=== PATIENT | male | born 1950 | race Caucasian/White ===

== ENCOUNTER 2019-02-11 20:30 | Outpatient (CLI) | payer MEDICARE | END 2019-02-11 20:31 | disposition home or self-care (01) | LOC: SLEEPLAB 20:30 | PROVIDERS: ATTEND Family Medicine | DX: G47.33 Obstructive sleep apnea (adult) (pediatric) (principal); E11.9 Type 2 diabetes mellitus without complications; I10 Essential (primary) hypertension; R06.83 Snoring | CPT/HCPCS: 95811 ==

== ENCOUNTER 2019-04-23 17:14 | Outpatient (CLI) | payer MEDICARE ==
[2019-04-23 17:42] LABS: #Basophils 0.1 thou/uL (0.0-0.2); #Eosinphils 0.2 thou/uL (0.0-0.7); #Lymphocytes 1.6 thou/uL (1.20-3.40); #Monocytes 0.5 thou/uL (0.11-0.59); #Neutrophils 4.1 thou/uL (1.40-6.50); %Basophils 1.2 % (0.0-1.0); %Eosinophils 3.2 % (0.0-10.0); %Lymphocytes 24.5 % (21.0-51.0); %Neutrophils 64.1 % (42.0-75.0); Hemoglobin 12.9 g/dL (14.0-18.0); Mean Corpuscular HGB CONC 32.7 g/dL (32.0-36.0); Mean Corpuscular Hemoglobin 30.5 pg (27.0-31.0); Mean Corpuscular Volume 93.3 fL (78.0-98.0); Mean Platelet Volume 6.2 fL (7.4-10.4); Platelet Count 207 thou/uL (130-400); RBC Distribution Width 13.5 % (11.5-14.5); Red Blood Cell (RBC) Count 4.21 mill/uL (4.70-6.10); White Blood Cell (WBC) Count 6.3 thou/uL (4.8-10.8)
--- NOTE | 2019-04-23 17:45 | RAD ---
EXAM: 2 views of the right hip HISTORY: Right hip pain after fall COMPARISON: None FINDINGS: 2 views of the right hip shows no evidence of acute fracture or dislocation. Moderate right hip degenerative changes are seen. No soft tissue swelling is present. IMPRESSION: No evidence of acute osseous abnormality.
--- NOTE | 2019-04-23 17:46 | RAD ---
EXAM: Right Rib series with chest x-ray HISTORY: Rib pain after fall COMPARISON: None FINDINGS: Single view of the chest shows a normal sized cardiomediastinal silhouette. Atheroscleroti c calcification are seen in the aorta. There is no evidence of consolidation, mass, or pleural effusion. A spinal stimulation device is seen with its tip in the mid thoracic spine. Multiple views of the right ribs shows no evidence of displaced rib fracture. No underlying pleural t hickening or pneumothorax are seen. IMPRESSION: 1. No evidence of displaced rib fracture. 2. No evidence of acute cardiopulmonary disease.
[2019-04-23 17:56] LABS: ALT (SGPT) 19 U/L (8-55); AST (SGOT) 20 U/L (5-34); Albumin 4.1 g/dL (3.4-4.8); Alkaline Phosphatase 69 U/L (40-150); Anion Gap 12 mmol/L (10-20); BUN (Urea Nitrogen) 17 mg/dL (8.4-25.7); Bilirubin, Total 0.3 mg/dL (0.2-1.2); Calc. Creatinine Clearance 0 mL/min (70-130); Calcium 9.7 mg/dL (7.8-10.44); Carbon Dioxide 25 mmol/L (23-31); Cardiac Risk 3.7 (Less than 4.5); Chloride 106 mmol/L (98-107); Cholesterol 129 mg/dl (< 200 Desired); Estimated GFR-MDRD 59; Globulin 3.1 g/dL (2.4-3.5); Glucose 123 mg/dL (80-115); HDL Cholesterol 35 mg/dL (>60 Neg Risk); LDL Cholesterol, Calculated 67 mg/dL; Potassium 4.3 mmol/L (3.5-5.1); Protein, Total 7.2 g/dL (5.8-8.1); Sodium 139 mmol/L (136-145); Triglycerides 137 mg/dL (Less than 150); Uric Acid 6.5 mg/dL (3.5-7.2)
[2019-04-23 18:20] LABS: Free T4 (Free Thyroxine) 0.87 ng/dL (0.70-1.48); Thyroid Stimulating Hormone 1.643 uIU/mL (0.35-4.94)
[2019-04-23 20:32] LABS: Hemoglobin A1c 6.7 % (4.0-6.0)
[2019-04-23 20:40] LABS: Creatinine, Urine 272.87 mg/dL (63-166); Microalbumin Urine 35.1 mg/dL (0.5-50.0); Microalbumin/Creat Ratio 128.6 mg/g (Less than 30)
== END 2019-04-23 17:15 | disposition home or self-care (01) ==
LOC: SCSRAD 17:14
PROVIDERS: ATTEND Family Medicine
DX: M25.551 Pain in right hip (principal); R07.81 Pleurodynia; E11.9 Type 2 diabetes mellitus without complications; M10.9 Gout, unspecified
CPT/HCPCS: 80053; 80061; 82043; 83036; 84439; 84443; 84550; 85025

== ENCOUNTER 2020-01-16 09:33 | Outpatient (CLI) | payer MEDICARE ==
--- NOTE | 2020-01-16 14:36 | RAD ---
Arthrogram right shoulder: DATE: 01/16/2020 HISTORY: 69-year-old male with right shoulder pain TECHNIQUE: Signed informed consent obtained. Patient placed supine on fluoroscopy table. Right anterior shoulder prepped and draped in usual sterile fashion after obtaining aids nurse radiographic images. 25-gauge needle used to apply buffered lidocaine. 22-gauge spinal needle advanced until tip contacted humeral head medially. 10 mL of normal saline solution containing dilute iodinated contrast, lidocaine, and epinephrine injected. Needle removed. Patient tolerated procedure well. No complications. Postinjecti on fluoroscopic image demonstrates contrast material in soft tissues, but not within the intracapsular space. Subsequent CT also confirmed this. 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 At least m ild DJD of glenohumeral joint. IMPRESSION: Unsuccessful right shoulder arthrogram. Recommend repeat arthrogram attempt. Patient should not be charged extra for the repeat study.
== END 2020-01-16 09:34 | disposition home or self-care (01) ==
LOC: RAD 09:33
PROVIDERS: ATTEND Orthopaedic Surgery
DX: S42.124A Nondisplaced fracture of acromial process, right shoulder, initial encounter for closed fracture (principal); M67.911 Unspecified disorder of synovium and tendon, right shoulder
CPT/HCPCS: 23350

== ENCOUNTER 2020-01-29 11:01 | Day surgery (SDC) | payer MEDICARE ==
[2020-01-28 14:06] VITALS: BMI 39.9
[~2020-01-29 11:01] MED LIST: Glycopyrrolate 0.2 MG/ML 5 ML SYRINGE ONE; Lidocaine 1% PF 5 ML VIAL ONE; Metoclopramide HCl 10 MG/2 ML VIAL ONE; Ondansetron PF 4 MG/2 ML Vial ONE; PROPOFOL 200 MG/20 ML VIAL ONE; Rocuronium Bromide 10 MG/ML (10ML VIAL) ONE; Ropivacaine 0.2% HCl/PF (40 MG/20 ML VIAL) ONE; Ropivacaine 0.5% HCl/PF (150 MG/30 ML VIAL) ONE; Succinylcholine Chloride 20 MG/ML 10 ml SYRINGE FS ONE
[2020-01-29] MEDS ORDERED: Fentanyl 100 MCG/2 ML VIAL ONE ×2 (12:14→12:33)
[2020-01-29] MEDS ORDERED: Midazolam HCl 2 mg/2 ml Vial ONE (12:33)
[2020-01-29] MEDS ORDERED: Ondansetron PF 4 MG/2 ML Vial IVP PRN (12:46)
[2020-01-29] MEDS ORDERED: Ropivacaine 0.2% 550 ML 550 ML NERVE BLCK SCH (12:46)
[2020-01-29] MEDS ORDERED: traMADol HCl 50 MG TAB PO PRN ×2 (12:46)
[2020-01-29] MEDS ORDERED: Promethazine HCl 25 MG/ML VIAL IM PRN ×2 (12:46→14:38)
[2020-01-29] MEDS ORDERED: HYDROcodone/Acetaminophen 10/325 mg Tablet PO PRN ×2 (12:46)
[2020-01-29] MEDS ORDERED: Zolpidem Tartrate 5 MG TAB PO PRN (12:46)
[2020-01-29] MEDS ORDERED: Acetaminophen 325 MG TAB PO PRN (12:46)
[2020-01-29] MEDS ORDERED: Fentanyl 100 MCG/2 ML VIAL IV PRN (12:47)
[2020-01-29] MEDS ORDERED: HYDROmorphone 2 MG/ML VIAL SLOW IVP PRN (14:38)
[2020-01-29] MEDS ORDERED: Promethazine HCl 25 MG/ML VIAL SLOW IVP PRN (14:38)
[2020-01-29] MEDS ORDERED: Meperidine HCl/PF 25 MG/ML VIAL SLOW IVP PRN (14:38)
--- NOTE | 2020-01-29 15:24 | OP ---
DATE OF PROCEDURE: 01/29/2020 PROCEDURE PERFORMED: Right shoulder open rotator cuff repair with arthroscopic subacromial decompression. PREOPERATIVE DIAGNOSIS: Right shoulder massive rotator cuff tear with retraction with subacromial impingement. POSTOPERATIVE DIAGNOSIS: Right shoulder massive rotator cuff tear with retraction with subacromial impingement. COMPLICATIONS: None. ESTIMATED BLOOD LOSS: 100 mL. ANESTHESIA: General plus block. IMPLANTS: Four Arthrex anchors were utilized, these are SwiveLock anchors. DESCRIPTION OF OPERATION: Mr. Wood was identified in the preoperative holding area. His correct extremity was marked. He was carried to the operating room. He was positioned supine. General anesthesia was induced. A multidisciplinary time-out was performed. The right upper extremity was prepped and draped in sterile fashion. We began the procedure with diagnostic arthroscopy. The patient had grade 2 and 3 changes of arthritis of the glenoid as well as the humeral head. There was a loose body in the shoulder, which was removed. The biceps tendon had been ruptured and was not evident. There was fraying of the subscapularis muscle, but it was intact and its attachment. There was a large full-thickness tear of the supraspinatus and infraspinatus tendons with retraction to the joint line level. We performed a thorough synovectomy with our cautery device. We also performed a thorough subacromial decompression at this point. We worked through the subacromial space and we used a shaver and a cautery device to debride all bursitis tissue. We cleared the undersurface of the acromion. At this point, we used a high-speed jas to level the acromion using a cutting block technique from anterior to posterior. Large osteophytes were removed. We performed an additional bursectomy. At this point, we decided to convert to an open procedure given that the patient had a large and retracted tear. We proceeded to make an incision of the lateral shoulder dissecting down to the deltoid fascia, which was opened. We then split the deltoid muscle. At this point, we worked down to the subacromial space. Again, we performed a thorough bursectomy in an open fashion. We then prepared the footprint of the rotator cuff with our high-speed jas. We burred down to the bleeding bony surface. Next, we placed 2 medial row anchors with inappropriate pints. We then passed a total of six sutures including FiberTape sutures through the rotator cuff. The rotator cuff was able to return to its footprint. We placed two lateral row anchors at this point, applying compression to the rotator cuff and restoring its anatomic position. This allowed a suture repair. At this point, we thoroughly irrigated. We then closed the deltoid fascia, followed by layered closure. A sterile dressing was applied. The patient was taken to the recovery room in good condition at this point without complication. Job ID: [id number]
[2020-01-29] MEDS ORDERED: Ondansetron ODT 4 MG TAB ONE (16:58)
--- NOTE | 2020-01-29 22:58 | EKG ---
Test Reason : PREOP Blood Pressure : / mmHG Vent. Rate : 063 BPM Atrial Rate : 063 BPM P-R Int : 170 ms QRS Dur : 126 ms QT Int : 416 ms P-R-T Axes : 039 072 038 degrees QTc Int : 425 ms Normal sinus rhythm Right bundle branch block Abnormal ECG No previous ECGs available Confirmed by DEVENDRA VILLANUEVA, DR. Xiong ([id number]) on 01/29/2020 10:57:51 PM Referred By: BOBBI Confirmed By:DR. Inga RAMSAY MD
== END 2020-01-29 17:20 | disposition home or self-care (01) ==
LOC: SDC 11:01
PROVIDERS: ATTEND Orthopaedic Surgery
PROC: 0RNJ4ZZ Release Right Shoulder Joint, Percutaneous Endoscopic Approach (ICD-10-PCS; principal; 2020-01-29)
PROC: 0LQ10ZZ Repair Right Shoulder Tendon, Open Approach (ICD-10-PCS; 2020-01-29)
PROC: 3E0T3BZ Introduction of Anesthetic Agent into Peripheral Nerves and Plexi, Percutaneous Approach (ICD-10-PCS; 2020-01-29)
DX: S46.011A Strain of muscle(s) and tendon(s) of the rotator cuff of right shoulder, initial encounter (principal); M25.811 Other specified joint disorders, right shoulder; M75.51 Bursitis of right shoulder; M19.011 Primary osteoarthritis, right shoulder; G89.18 Other acute postprocedural pain; I10 Essential (primary) hypertension; E78.5 Hyperlipidemia, unspecified; E11.9 Type 2 diabetes mellitus without complications; M19.90 Unspecified osteoarthritis, unspecified site; M10.9 Gout, unspecified; G47.33 Obstructive sleep apnea (adult) (pediatric); K21.9 Gastro-esophageal reflux disease without esophagitis; N40.0 Benign prostatic hyperplasia without lower urinary tract symptoms; Z87.891 Personal history of nicotine dependence; Z79.84 Long term (current) use of oral hypoglycemic drugs; Z79.899 Other long term (current) drug therapy; Z99.89 Dependence on other enabling machines and devices; X58.XXXA Exposure to other specified factors, initial encounter
CPT/HCPCS: 23410; 29822; 64416; 93005; A4306; C1713; 93010; J0690; J2001; J2250; J2405; J2704; J2765; J2795; J3010; Q0162

== ENCOUNTER → 2020-01-30 | Day surgery (SDC) | payer MEDICARE ==
[~2020-01-30] MED LIST changes: +Acetaminophen 325 MG TAB PO PRN; +Fentanyl 100 MCG/2 ML VIAL IV PRN; -Glycopyrrolate 0.2 MG/ML 5 ML SYRINGE ONE; -Lidocaine 1% PF 5 ML VIAL ONE; -Metoclopramide HCl 10 MG/2 ML VIAL ONE; +Ondansetron PF 4 MG/2 ML Vial IVP PRN; -Ondansetron PF 4 MG/2 ML Vial ONE; -PROPOFOL 200 MG/20 ML VIAL ONE; +Promethazine HCl 25 MG/ML VIAL IM PRN; -Rocuronium Bromide 10 MG/ML (10ML VIAL) ONE; +Ropivacaine 0.2% 550 ML 550 ML NERVE BLCK SCH; -Succinylcholine Chloride 20 MG/ML 10 ml SYRINGE FS ONE; +Zolpidem Tartrate 5 MG TAB PO PRN
== END ==
LOC: SDC 17:11
PROVIDERS: ATTEND Anesthesiology
PROC: 3E0T3BZ Introduction of Anesthetic Agent into Peripheral Nerves and Plexi, Percutaneous Approach (ICD-10-PCS; principal; 2020-01-30)
DX: G89.18 Other acute postprocedural pain (principal); Z98.890 Other specified postprocedural states
CPT/HCPCS: 64415; A4306; J2795

== ENCOUNTER → 2020-01-31 | Day surgery (SDC) | payer MEDICARE | LOC: SDC 05:56 | PROVIDERS: ATTEND Anesthesiology | PROC: 3E0T3BZ Introduction of Anesthetic Agent into Peripheral Nerves and Plexi, Percutaneous Approach (ICD-10-PCS; principal; 2020-01-31) | DX: G89.18 Other acute postprocedural pain (principal) ==

== ENCOUNTER 2020-09-16 06:37 | Outpatient (CLI) | payer MEDICARE ==
[2020-09-16 11:12] LABS: Bilirubin Neg (Negative); Blood, Urine Negative (Negative); Clarity Clear (Clear); Glucose, Urine (Dipstick) Normal (Negative); Ketone, Urine Negative (Negative); Leukocyte Negative (Negative); Nitrite Negative (Negative); Protein, Urine (Dipstick) 15 mg/dl (Neg-Trace); Specific Gravity, Urine 1.015 (1.002-1.036); Urobilinogen Normal mg/dL (Less than 2)
[2020-09-16 11:15] LABS: Hemoglobin 12.7 g/dL (14.0-18.0); Mean Corpuscular HGB CONC 32.4 G/DL (32.0-36.0); Mean Corpuscular Hemoglobin 30.8 PG (27.0-33.0); Mean Corpuscular Volume 95.1 fl (80.0-100.0); Mean Platelet Volume 9.5 fl (7.4-10.4); Platelet Count 227 10x3/uL (130-400); RBC Distribution Width 14.6 % (11.5-14.5); Red Blood Cell (RBC) Count 4.12 10x6/uL (4.40-5.80); White Blood Cell (WBC) Count 4.6 10x3/uL (4.5-11.0)
[2020-09-16 11:18] LABS: Anion Gap 18 mmol/L (10-20); BUN (Urea Nitrogen) 21 mg/dL (8.4-25.7); Calc. Creatinine Clearance 0 mL/min (70-130); Calcium 9.3 mg/dL (7.8-10.44); Carbon Dioxide 22 mmol/L (23-31); Chloride 105 mmol/L (98-107); Estimated GFR-MDRD 55; Glucose 152 mg/dL (80-115); Potassium 4.8 mmol/L (3.5-5.1); Sodium 140 mmol/L (136-145)
[2020-09-16 11:32] LABS: Bacteria/HPF None Seen HPF (None Seen); RBC/HPF 0-3 HPF (0-3); Squamous Epithelial 0-3 HPF (0-3); WBC/HPF 0-3 HPF (0-3)
[2020-09-16 11:36] LABS: PTT 31.3 sec (22.0-33.0); Prothrombin Time 10.9 sec (9.5-12.1)
--- NOTE | 2020-09-16 23:45 | EKG ---
Test Reason : PREOP Blood Pressure : / mmHG Vent. Rate : 068 BPM Atrial Rate : 068 BPM P-R Int : 164 ms QRS Dur : 124 ms QT Int : 406 ms P-R-T Axes : 061 107 057 degrees QTc Int : 431 ms Normal sinus rhythm Right bundle branch block Abnormal ECG No previous ECGs available Confirmed by Ingrid RICHARDS ([id number]) on 09/16/2020 11:45:37 PM Referred By: ISACC Confirmed By:Ingrid RICHARDS
[2020-09-17 12:57] LABS: SARS-CoV-2 MS2 Positive; SARS-CoV-2 N Gene Negative; SARS-CoV-2 S Gene Negative; SARS-CoV-2 by NAA Not Detected (NotDetected); SARS-CoV-2 orf1ab Negative
== END 2020-09-16 06:38 | disposition home or self-care (01) ==
LOC: LABBT 06:37
PROVIDERS: ATTEND Urology
DX: Z01.818 Encounter for other preprocedural examination (principal); Z20.828 Contact with and (suspected) exposure to other viral communicable diseases; N40.0 Benign prostatic hyperplasia without lower urinary tract symptoms
CPT/HCPCS: 80048; 81001; 85027; 85610; 85730; 87086; 93005; U0003; 87635; 93010

== ENCOUNTER 2020-09-19 06:26 | Day surgery (SDC) | payer MEDICARE ==
[2020-09-18 11:08] VITALS: BMI 40.6
[2020-09-19] MEDS ORDERED: Levofloxacin 500 mg/D5W 100 ml Premix Bag ONE (07:20)
[2020-09-19] MEDS ORDERED: Midazolam HCl 2 mg/2 ml Vial ONE (07:44)
[2020-09-19] MEDS ORDERED: Fentanyl 100 MCG/2 ML VIAL ONE (08:37)
[2020-09-19] MEDS ORDERED: SUGAMMADEX SODIUM 200 MG/2 ML VIAL ONE (08:53)
[2020-09-19] MEDS ORDERED: Phenazopyridine HCl 100 MG TAB ONE (09:25)
[2020-09-19] MEDS ORDERED: Oxybutynin 5 MG TAB ONE (09:26)
[2020-09-19] MEDS ORDERED: Ketorolac Tromethamine 30 MG/ML VIAL ONE (09:26)
[2020-09-19] MEDS ORDERED: Rocuronium Bromide 10 MG/ML (10ML VIAL) ONE (10:44)
[2020-09-19] MEDS ORDERED: Succinylcholine 200 MG/10 ml SYRINGE FS ONE (10:44)
[2020-09-19] MEDS ORDERED: Albuterol Sulfate HFA (OR ONLY) ONE (10:44)
[2020-09-19] MEDS ORDERED: PHENYLEPHRINE-NS 100 MCG/ML 10 ML SYRINGE ONE (10:44)
[2020-09-19] MEDS ORDERED: Ondansetron PF 4 MG/2 ML Vial ONE (10:44)
[2020-09-19] MEDS ORDERED: Lidocaine 1% PF 5 ML VIAL ONE (10:44)
[2020-09-19] MEDS ORDERED: PROPOFOL 200 MG/20 ML VIAL ONE (10:44)
--- NOTE | 2020-09-19 11:13 | OP ---
DATE OF PROCEDURE: 09/19/2020 PREOPERATIVE DIAGNOSIS: Enlarged prostate with lower urinary tract symptoms. POSTOPERATIVE DIAGNOSIS: Enlarged prostate with lower urinary tract symptoms. PROCEDURE PERFORMED: UroLift x6 implants. ANESTHESIA: General. COMPLICATIONS: None. ESTIMATED BLOOD LOSS: Minimal. DESCRIPTION OF PROCEDURE: After informed consent, the patient was taken to the operating room, transferred to the table. Anesthesia was established. A time-out was performed showing the correct patient, site, and procedure. Preoperative antibiotics were administered. He was prepped and draped in the lithotomy position. A 20-Japanese cystoscope was inserted into the bladder. The cystoscopy bridge was replaced with the UroLift delivery device. The first treatment site was the patient's left side approximately 2 cm distal to the bladder neck. The distal tip of the delivery device was then angled laterally approximately 20 degrees of this position to compress the lateral lobe. The trigger was pulled, thereby deploying a needle containing the implant through the prostate. The needle was then retracted, allowing one end of the implant to be delivered to the capsular surface of the prostate. The implant was then tensioned to assure capsular seating and removal of slack monofilament. The device was then angled back toward midline and slowly advanced proximally about 3 to 4 mm until cystoscopic verification of the monofilament being centered in the delivery bay. The urethral end piece was then affixed to the monofilament thereby tailoring the size of the implant, excess filament was then severed. The delivery device was then readvanced into the bladder. The same procedure was repeated on the right side near the bladder neck deploying the second implant. Two additional implants 3rd and 4th were delivered just proximal to the verumontanum again one on the right and one on the left side of the prostate following a similar technique. The patient still had persistent area of obstruction in the mid prostate and 2 more implants were delivered in the mid prostate. Final cystoscopic view revealed no persistent obstruction. Total number of implants used 6. The patient's bladder was then drained and refilled with about 150 to 200 mL of saline. The scope was then removed. The patient awoken from anesthesia, transferred back to his hospital bed, and taken to PACU in stable condition, where he will discharge home upon recovery. Criteria, no active UTI. Conservative management has failed and surgical intervention is indicated. IPSS 21/6, prostate volume 72 g. Job ID: [id number]
== END 2020-09-19 11:20 | disposition home or self-care (01) ==
LOC: SDC 06:26
PROVIDERS: ATTEND Urology
PROC: 0T7D8DZ Dilation of Urethra with Intraluminal Device, Via Natural or Artificial Opening Endoscopic (ICD-10-PCS; principal; 2020-09-19)
DX: N40.1 Benign prostatic hyperplasia with lower urinary tract symptoms (principal); E29.1 Testicular hypofunction; N52.01 Erectile dysfunction due to arterial insufficiency; E11.9 Type 2 diabetes mellitus without complications; I10 Essential (primary) hypertension; M10.9 Gout, unspecified; G47.33 Obstructive sleep apnea (adult) (pediatric); K21.9 Gastro-esophageal reflux disease without esophagitis; Z79.899 Other long term (current) drug therapy; Z87.891 Personal history of nicotine dependence
CPT/HCPCS: C1889; C9740; J1885; J1956; J2250; J2405; J2704; J3010

== ENCOUNTER 2021-08-03 08:48 | Outpatient (CLI) | payer MEDICARE ==
[2021-08-03 09:58] LABS: INR-International Normal Ratio 0.9; Prothrombin Time 10.4 sec (9.5-12.1)
[2021-08-03 22:32] LABS: SARS-CoV-2 PCR by NAA Not Detected (NotDetected)
== END 2021-08-03 08:49 | disposition home or self-care (01) ==
LOC: LABBT 08:48
PROVIDERS: ATTEND Orthopaedic Surgery
DX: Z01.818 Encounter for other preprocedural examination (principal); S46.012A Strain of muscle(s) and tendon(s) of the rotator cuff of left shoulder, initial encounter; Z20.822 Contact with and (suspected) exposure to COVID-19
CPT/HCPCS: 85610; 93005; U0003; U0005; 93010

== ENCOUNTER 2021-08-06 06:58 | Day surgery (SDC) | payer MEDICARE ==
[2021-08-04 14:26] VITALS: BMI 41.3
[2021-08-06] MEDS ORDERED: Fentanyl 100 MCG/2 ML VIAL ONE ×3 (07:58→11:28)
[2021-08-06] MEDS ORDERED: Sodium Chloride 0.9% 10 ML ONE (07:58)
[2021-08-06] MEDS ORDERED: Midazolam HCl 2 mg/2 ml Vial ONE (07:58)
[2021-08-06] MEDS ORDERED: PROPOFOL 200 MG/20 ML VIAL ONE (09:01)
[2021-08-06] MEDS ORDERED: Rocuronium Bromide 10 MG/ML (10ML VIAL) ONE (09:01)
[2021-08-06] MEDS ORDERED: Metoclopramide HCl 10 MG/2 ML VIAL ONE (09:01)
[2021-08-06] MEDS ORDERED: Ondansetron PF 4 MG/2 ML Vial ONE ×2 (09:01→12:19)
[2021-08-06] MEDS ORDERED: Lidocaine 1% PF 5 ML VIAL ONE (09:01)
[2021-08-06] MEDS ORDERED: Ropivacaine 0.5% HCl/PF (150 MG/30 ML VIAL) ONE (09:01)
[2021-08-06] MEDS ORDERED: Glycopyrrolate 0.2 MG/ML 5 ML SYRINGE ONE (09:01)
[2021-08-06] MEDS ORDERED: PHENYLEPHRINE-NS 100 MCG/ML 10 ML SYRINGE ONE (09:01)
[2021-08-06] MEDS ORDERED: Ondansetron PF 4 MG/2 ML Vial IVP PRN (10:00)
[2021-08-06] MEDS ORDERED: Promethazine HCl 25 MG/ML VIAL IM PRN (10:00)
[2021-08-06] MEDS ORDERED: Ropivacaine 0.2% 550 ML 550 ML NERVE BLCK SCH (10:00)
[2021-08-06] MEDS ORDERED: Ketorolac Tromethamine 30 MG/ML VIAL IVP PRN (10:00)
[2021-08-06] MEDS ORDERED: traMADol HCl 50 MG TAB PO PRN ×2 (10:00)
[2021-08-06] MEDS ORDERED: HYDROcodone/Acetaminophen 5/325 mg Tablet PO PRN ×2 (10:00)
[2021-08-06] MEDS ORDERED: Zolpidem Tartrate 5 MG TAB PO PRN (10:00)
== END 2021-08-06 14:10 | disposition home or self-care (01) ==
LOC: SDC 06:58
PROVIDERS: ATTEND Orthopaedic Surgery
PROC: 0LQ20ZZ Repair Left Shoulder Tendon, Open Approach (ICD-10-PCS; principal; 2021-08-06)
PROC: 3E0T3BZ Introduction of Anesthetic Agent into Peripheral Nerves and Plexi, Percutaneous Approach (ICD-10-PCS; 2021-08-06)
DX: S46.012A Strain of muscle(s) and tendon(s) of the rotator cuff of left shoulder, initial encounter (principal); S46.112A Strain of muscle, fascia and tendon of long head of biceps, left arm, initial encounter; M19.012 Primary osteoarthritis, left shoulder; E11.9 Type 2 diabetes mellitus without complications; I10 Essential (primary) hypertension; M47.816 Spondylosis without myelopathy or radiculopathy, lumbar region; E78.5 Hyperlipidemia, unspecified; M10.9 Gout, unspecified; G47.33 Obstructive sleep apnea (adult) (pediatric); K21.9 Gastro-esophageal reflux disease without esophagitis; Z86.16 Personal history of COVID-19; Z87.891 Personal history of nicotine dependence; Z79.84 Long term (current) use of oral hypoglycemic drugs; Z79.899 Other long term (current) drug therapy; W19.XXXA Unspecified fall, initial encounter
CPT/HCPCS: 23410; 64416; A4306; J0690; J2250; J2405; J2704; J2765; J2795; J3010

== ENCOUNTER 2022-07-05 09:15 | Outpatient (CLI) | payer MEDICARE ==
[2022-07-05 14:46] LABS: #Eosinphils 0.2 thou/uL (0.0-0.7); #Lymphocytes 1.7 thou/uL (1.20-3.40); #Monocytes 0.5 thou/uL (0.11-0.59); #Neutrophils 3.6 thou/uL (1.40-6.50); %Basophils 0.4 % (0.0-1.0); %Eosinophils 2.9 % (0.0-10.0); %Lymphocytes 27.8 % (21.0-51.0); %Monocytes 8.6 % (0.0-10.0); %Neutrophils 60.3 % (42.0-75.0); Mean Corpuscular Hemoglobin 31.7 pg (27.0-31.0); Mean Corpuscular Volume 96.1 fL (78.0-98.0); Mean Platelet Volume 7.9 fL (7.4-10.4); Platelet Count 197 thou/uL (130-400); RBC Distribution Width 12.5 % (11.5-14.5); Red Blood Cell (RBC) Count 4.41 mill/uL (4.70-6.10)
[2022-07-05 15:01] LABS: PTT 32.9 sec (22.9-36.1)
[2022-07-05 15:07] LABS: ALT (SGPT) 20 U/L (8-55); AST (SGOT) 17 U/L (5-34); Albumin 4.3 g/dL (3.4-4.8); Alkaline Phosphatase 78 U/L (40-110); Anion Gap 15 mmol/L (10-20); BUN (Urea Nitrogen) 19 mg/dL (8.4-25.7); Bilirubin, Total 0.5 mg/dL (0.2-1.2); Calc. Creatinine Clearance 0 mL/min (70-130); Calcium 9.8 mg/dL (7.8-10.44); Carbon Dioxide 26 mmol/L (23-31); Chloride 103 mmol/L (98-107); Estimated GFR 47; Globulin 2.6 g/dL (2.4-3.5); Glucose 192 mg/dL (83-110); Potassium 4.6 mmol/L (3.5-5.1); Protein, Total 6.9 g/dL (5.8-8.1); Sodium 139 mmol/L (136-145)
[2022-07-05 15:25] LABS: Bacteria/HPF None Seen HPF (None Seen); Bilirubin Negative (Negative); Blood, Urine Negative (Negative); Clarity Clear (Clear); Glucose, Urine (Dipstick) Normal (Negative); Ketone, Urine Negative (Negative); Leukocyte Negative Leu/uL (Negative); Nitrite Negative (Negative); Protein, Urine (Dipstick) Negative (Neg-Trace); RBC/HPF None Seen HPF (0-3); Squamous Epithelial None Seen HPF (0-3); Urobilinogen Normal mg/dL (Less than 2); WBC/HPF 0-3 HPF (0-3); pH, Urine 5.5 (5.0-9.0)
== END 2022-07-05 09:16 | disposition home or self-care (01) ==
LOC: SCSRAD 09:15
PROVIDERS: ATTEND Family Medicine
DX: Z01.818 Encounter for other preprocedural examination (principal)
CPT/HCPCS: 36415; 71046; 80053; 81001; 85025; 85610; 85730

== ENCOUNTER 2022-11-03 05:46 | Inpatient (IN) | payer MEDICARE ==
[2022-11-02 10:58] VITALS: BMI 42.0
[2022-11-03] MEDS ORDERED: Tranexamic Acid 1,000 MG/10 ML VIAL ONE (06:16)
[2022-11-03] MEDS ORDERED: Sodium Chloride 0.9% 100 ML ONE (06:16)
[2022-11-03] MEDS ORDERED: Fentanyl 100 MCG/2 ML VIAL ONE (06:22)
[2022-11-03] MEDS ORDERED: CEFAZOLIN 2 GM in Sodium Chloride 0.9% 100 ML IVPB SCH (06:30)
[2022-11-03] MEDS ORDERED: VANCOMYCIN 2 GRAM/500 ML BAG 2 GM in Premix Bag 1 BAG IVPB SCH (06:30)
[2022-11-03] MEDS ORDERED: Bupivacaine/Epinephrine 0.25% 30 ML VIAL ONE (06:32)
[2022-11-03] MEDS ORDERED: Ondansetron ODT 4 MG TAB PO PRN (07:04)
[2022-11-03] MEDS ORDERED: Bisacodyl 5 MG TAB PO PRN (07:04)
[2022-11-03 07:43] LABS: SARS-CoV-2 NAA Rapid Test Not Detected (NotDetected)
[2022-11-03] MEDS ORDERED: Albuterol Sulfate 2.5 mg/0.5 ml Neb NEB PRN (14:02)
[2022-11-03] MEDS: CEFAZOLIN 2 GM in Sodium Chloride 0.9% 100 ML IVPB SCH ×2 (15:16→21:47)
[2022-11-03] MEDS: HYDROcodone/Acetaminophen 5/325 mg Tablet PO PRN (15:38)
[2022-11-03] MEDS: Ketorolac Tromethamine 30 MG/ML VIAL IVP PRN (15:39)
[2022-11-03] MEDS: Enoxaparin Sodium 40 MG/0.4 ML SYRINGE SC SCH (18:11)
[2022-11-03] MEDS: Atorvastatin Calcium 10 MG TAB PO SCH (21:46)
[2022-11-03] MEDS: traZODone HCl 150 MG TAB PO SCH (21:46)
[2022-11-04] MEDS: CEFAZOLIN 2 GM in Sodium Chloride 0.9% 100 ML IVPB SCH ×3 (06:09→21:35)
[2022-11-04 07:24] LABS: #Eosinphils 0.2 thou/uL (0.0-0.7); #Lymphocytes 1.3 thou/uL (1.20-3.40); #Monocytes 0.5 thou/uL (0.11-0.59); #Neutrophils 3.4 thou/uL (1.40-6.50); %Basophils 0.3 % (0.0-1.0); %Eosinophils 3.2 % (0.0-10.0); %Lymphocytes 24.1 % (21.0-51.0); %Monocytes 9.2 % (0.0-10.0); %Neutrophils 63.3 % (42.0-75.0); Hemoglobin 12.4 g/dL (14.0-18.0); Mean Corpuscular HGB CONC 33.1 g/dL (32.0-36.0); Mean Corpuscular Hemoglobin 31.6 pg (27.0-31.0); Mean Corpuscular Volume 95.4 fl (78.0-98.0); Mean Platelet Volume 7.1 fL (7.4-10.4); Platelet Count 225 10x3/uL (130-400); RBC Distribution Width 12.4 % (11.5-14.5); Red Blood Cell (RBC) Count 3.92 mill/uL (4.70-6.10); White Blood Cell (WBC) Count 5.3 10x3/uL (4.8-10.8)
[2022-11-04 07:40] LABS: Anion Gap 12 mmol/L (10-20); BUN (Urea Nitrogen) 23 mg/dL (8.4-25.7); Calc. Creatinine Clearance 81 mL/min (70-130); Calcium 9.3 mg/dL (7.8-10.44); Carbon Dioxide 24 mmol/L (23-31); Chloride 104 mmol/L (98-107); Estimated GFR 49; Glucose 188 mg/dL (83-110); Potassium 4.3 mmol/L (3.5-5.1); Sodium 136 mmol/L (136-145)
[2022-11-04] MEDS ORDERED: VANCOMYCIN 2 GRAM/500 ML BAG 2 GM in Premix Bag 1 BAG IVPB SCH (08:00)
[2022-11-04] MEDS: Lisinopril 20 MG TAB PO SCH (08:40)
[2022-11-04] MEDS: Enoxaparin Sodium 40 MG/0.4 ML SYRINGE SC SCH (08:41)
[2022-11-04] MEDS: Pioglitazone HCl 45 MG TAB PO SCH (08:44)
[2022-11-04] MEDS: 1/2 NS w/KCL 20 mEq 1,000 ML IV SCH (12:02)
[2022-11-04] MEDS: HYDROcodone/Acetaminophen 5/325 mg Tablet PO PRN ×2 (15:26→23:56)
[2022-11-04] MEDS: Ketorolac Tromethamine 30 MG/ML VIAL IVP PRN (21:31)
[2022-11-04] MEDS: traZODone HCl 150 MG TAB PO SCH (21:34)
[2022-11-04] MEDS: Atorvastatin Calcium 10 MG TAB PO SCH (21:34)
[2022-11-05] MEDS: 1/2 NS w/KCL 20 mEq 1,000 ML IV SCH (02:15)
[2022-11-05 05:48] LABS: #Eosinphils 0.2 thou/uL (0.0-0.7); #Lymphocytes 1.3 thou/uL (1.20-3.40); #Monocytes 0.5 thou/uL (0.11-0.59); #Neutrophils 3.2 thou/uL (1.40-6.50); %Basophils 0.6 % (0.0-1.0); %Eosinophils 3.5 % (0.0-10.0); %Lymphocytes 25.1 % (21.0-51.0); %Monocytes 9.3 % (0.0-10.0); %Neutrophils 61.5 % (42.0-75.0); Hemoglobin 12.3 g/dL (14.0-18.0); Mean Corpuscular HGB CONC 32.7 g/dL (32.0-36.0); Mean Corpuscular Hemoglobin 30.9 pg (27.0-31.0); Mean Corpuscular Volume 94.5 fl (78.0-98.0); Mean Platelet Volume 7.1 fL (7.4-10.4); Platelet Count 228 10x3/uL (130-400); RBC Distribution Width 12.3 % (11.5-14.5); Red Blood Cell (RBC) Count 3.98 mill/uL (4.70-6.10); White Blood Cell (WBC) Count 5.3 10x3/uL (4.8-10.8)
[2022-11-05 06:12] LABS: Vancomycin, Random 11.8 ug/mL (See Comment)
[2022-11-05] MEDS: CEFAZOLIN 2 GM in Sodium Chloride 0.9% 100 ML IVPB SCH (06:17)
[2022-11-05 07:46] LABS: Anion Gap 15 mmol/L (10-20); BUN (Urea Nitrogen) 24 mg/dL (8.4-25.7); Calc. Creatinine Clearance 88 mL/min (70-130); Carbon Dioxide 20 mmol/L (23-31); Chloride 104 mmol/L (98-107); Estimated GFR 54; Glucose 164 mg/dL (83-110); Potassium 4.5 mmol/L (3.5-5.1); Sodium 134 mmol/L (136-145)
[2022-11-05] MEDS ORDERED: VANCOMYCIN 1.25 GM/250 ML BAG 1.25 GM in Premix Bag 1 BAG IVPB SCH (08:00)
[2022-11-05] MEDS ORDERED: Sulfameth/Trimethoprim DS 800-160mg TAB PO SCH (08:00)
[2022-11-05] MEDS: Enoxaparin Sodium 40 MG/0.4 ML SYRINGE SC SCH (09:36)
[2022-11-05] MEDS: Lisinopril 20 MG TAB PO SCH (09:36)
[2022-11-05] MEDS: Pioglitazone HCl 45 MG TAB PO SCH (09:52)
[2022-11-05 16:25] VITALS: BP 154/73; TEMP 98.1
== END 2022-11-05 17:35 | disposition home or self-care (01) | DRG 558 ==
LOC: SDC 05:46 → SURG A 13:42
PROVIDERS: ADMIT Internal Medicine; ATTEND Internal Medicine
DX: M71.161 Other infective bursitis, right knee (principal); M17.11 Unilateral primary osteoarthritis, right knee; I10 Essential (primary) hypertension; E11.9 Type 2 diabetes mellitus without complications; G47.33 Obstructive sleep apnea (adult) (pediatric); Z20.822 Contact with and (suspected) exposure to COVID-19; E78.5 Hyperlipidemia, unspecified; M10.9 Gout, unspecified; N40.0 Benign prostatic hyperplasia without lower urinary tract symptoms; Z53.9 Procedure and treatment not carried out, unspecified reason; K21.9 Gastro-esophageal reflux disease without esophagitis; K59.00 Constipation, unspecified; N28.9 Disorder of kidney and ureter, unspecified; G47.00 Insomnia, unspecified; Z86.16 Personal history of COVID-19; Z98.1 Arthrodesis status; Z79.899 Other long term (current) drug therapy; Z79.84 Long term (current) use of oral hypoglycemic drugs; Z99.89 Dependence on other enabling machines and devices; Z82.49 Family history of ischemic heart disease and other diseases of the circulatory system
CPT/HCPCS: 36415; 80048; 80202; 85025; 85652; 86140; J1650; J1885; J3010; J3370; J3480; J3490; U0002